=== PATIENT | female | born 1960 | race Hispanic/Latino ===

== ENCOUNTER → 2021-03-28 | Day surgery (SDC) | payer OTHER ==
[~2021-03-28] MED LIST: LIDOCAINE 1% W/EPINEPHRINE 20 ML VIAL ONE; MONTELUKAST SOD10 MG PO; MUPIROCIN 2% OINT 22 GM TUBE ONE; OMEPRAZOLE40 MG PO; OXYMETAZOLINE HCL 0.05% NAS 1 SPRAY BTL ONE; SODIUM CHLORIDE/ALOE VERA 14.1GM NASAL GEL ONE
[2021-03-28 09:55] VITALS: BP 130/60
== END | disposition home or self-care (01) ==
LOC: OR 06:03
PROVIDERS: ATTEND Otolaryngology
DX: J34.89 Other specified disorders of nose and nasal sinuses (principal); F41.9 Anxiety disorder, unspecified; M19.90 Unspecified osteoarthritis, unspecified site; K21.9 Gastro-esophageal reflux disease without esophagitis; E78.00 Pure hypercholesterolemia, unspecified; I10 Essential (primary) hypertension; G47.33 Obstructive sleep apnea (adult) (pediatric); J34.2 Deviated nasal septum; J34.3 Hypertrophy of nasal turbinates; Z01.810 Encounter for preprocedural cardiovascular examination; Z01.812 Encounter for preprocedural laboratory examination; Z20.822 Contact with and (suspected) exposure to COVID-19
CPT/HCPCS: 30140; 30520; 93005; U0002